=== PATIENT | female | born 1945 | race Caucasian/White ===

== ENCOUNTER 2017-08-26 11:25 | Emergency (ER) | payer MEDICARE ==
[~2017-08-26] VITALS: Ht 157.5 cm; Wt 46.0 kg
[2017-08-26 11:29] VITALS: BP 100/62; PULSE 125; RESP 15; TEMP 98.6; O2SAT 95
--- NOTE | 2017-08-26 11:34 | PD ---
Physical Exam Date Seen by Provider: Aug 26, 2017 Time Seen by Provider: 11:30 Narrative 72-year-old female with history of ulcerative colitis with total colectomy history and pouchitis with surgical treatment at [facility] 6 months ago. Patient now has chronic diarrhea and history of recurrent dehydration. She is under the care of a local card services specialist but feels she is in need of hydration. She is not requesting hospitalization but would like to be evaluated for dehydration. She has no known drug allergies. Data Data Last Documented VS Vital Signs Date Time Temp Pulse Resp B/P (MAP) Pulse Ox O2 Delivery O2 Flow Rate FiO2 08/26/17 11:29 98.6 125 15 100/62 (75) 95 MDM Medical Record Reviewed: Yes Supervised Visit with DIANNA: Yes Narrative Course Vital signs reviewed. Patient is stable. Patient is awaiting mental placement. Condition: Stable Beni Dial Aug 26, 2017 11:34
[2017-08-26] MEDS ORDERED: SODIUM CHLOR 0.9% 1000 ML INJ 1,000 ML IV ONE (11:53)
--- NOTE | 2017-08-26 12:01 | PD ---
HPI Chief Complaint: Medical Clearance Time Seen by Provider: 11:40 Travel History International Travel<30 days: No Contact w/Intl Traveler<30days: No Traveled to known affect area: No History of Present Illness HPI 72-year-old female that presents to the ED for evaluation of possible dehydration. Patient has a chronic history of ulcerative colitis having had surgery to remove the collar and and having had to have repair of the colon with a pouch. Patient states that the last surgery was in March of 2016. Ever since she's been having some issues on and off. Per patient for the past year she's been dealing with the hydration secondary to inability to absorb enough fluids. She has been seen at the [facility] multiple times for this and usually gets admitted for IV fluids. Per patient her symptoms feel similar. Per patient she has pain on her legs as well as feeling weak and tired. Per patient she is drinking a lot of water and during although thinks that the [facility] doctors had told her but she feels like she still needs IV fluids. He denies any new pains. She states that she always has abdominal cramping which has not changed. She takes prophylactic antibiotics for her pouchitis. She also was started on Imodium to try to help with the symptoms but it Appears that he has not. This was started 2 weeks ago. She follows with Dr. Obey Staton was able to see him today but he recommended that the patient comes here to get evaluated as he cannot give her fluids in the office. Patient denies any other medical issues. No chest pain or shortness of breath. She does state having some lower back pain which is normal when she gets this dehydration. She has a GI doctor but not in [facility]. All her GI care is done at the [facility] but per patient she feels like she needs to get one in the area. She states that her pain is 4 out of 10 and is more cramping. PFSH Social History Alcohol Use: No Tobacco Use: No Substance Use: No Allergies-Medications (Allergen,Severity, Reaction): Coded Allergies: infliximab (Verified Allergy, Severe, 08/26/17) Review of Systems Except as stated in HPI: all other systems reviewed are Neg Physical Exam Narrative GENERAL: SKIN: Warm and dry. HEAD: Atraumatic. Normocephalic. EYES: Pupils equal and round. No scleral icterus. No injection or drainage. ENT: No nasal bleeding or discharge. Mucous membranes pink and moist. Tongue is midline. No uvula deviation. NECK: Trachea midline. No JVD. CARDIOVASCULAR: Regular rate and rhythm. No murmurs, S3, S4. RESPIRATORY: No accessory muscle use. Clear to auscultation. Breath sounds equal bilaterally. GASTROINTESTINAL: Abdomen soft, non-tender, nondistended. Hepatic and splenic margins not palpable. MUSCULOSKELETAL: Extremities without clubbing, cyanosis, or edema. No obvious deformities. Full range of motion of the upper and lower extremities bilaterally. 2+ pulses bilaterally. NEUROLOGICAL: Awake and alert. No obvious cranial nerve deficits. Motor grossly within normal limits. Five out of 5 muscle strength in the arms and legs. Normal speech. PSYCHIATRIC: Appropriate mood and affect; insight and judgment normal. Data Data Last Documented VS Vital Signs Date Time Temp Pulse Resp B/P (MAP) Pulse Ox O2 Delivery O2 Flow Rate FiO2 08/26/17 13:33 87 18 100/56 (71) 98 Room Air 08/26/17 11:29 98.6 Orders Orders Complete Blood Count With Diff (08/26/17 11:53) Comprehensive Metabolic Panel (08/26/17 11:53) Urinalysis - C+S If Indicated (08/26/17 11:53) Lipase (08/26/17 11:53) Iv Access Insert/Monitor (08/26/17 11:53) Ecg Monitoring (08/26/17 11:53) Oximetry (08/26/17 11:53) Sodium Chlor 0.9% 1000 Ml Inj (Ns 1000 M (08/26/17 11:53) Lactic Acid (08/26/17 11:53) Creatine Kinase (Cpk) (08/26/17 11:53) Orthostatic Vital Signs (08/26/17 11:54) Electrocardiogram (08/26/17 ) Sodium Chlor 0.9% 1000 Ml Inj (Ns 1000 M (08/26/17 13:34) Labs Laboratory Tests Test 08/26/17 12:00 08/26/17 13:00 08/26/17 14:29 White Blood Count 8.5 TH/MM3 Red Blood Count 4.13 MIL/MM3 Hemoglobin 12.9 GM/DL Hematocrit 37.0 % Mean Corpuscular Volume 89.4 FL Mean Corpuscular Hemoglobin 31.2 PG Mean Corpuscular Hemoglobin Concent 34.9 % Red Cell Distribution Width 13.4 % Platelet Count 610 TH/MM3 Mean Platelet Volume 6.7 FL Neutrophils (%) (Auto) 75.6 % Lymphocytes (%) (Auto) 9.3 % Monocytes (%) (Auto) 12.6 % Eosinophils (%) (Auto) 2.1 % Basophils (%) (Auto) 0.4 % Neutrophils # (Auto) 6.4 TH/MM3 Lymphocytes # (Auto) 0.8 TH/MM3 Monocytes # (Auto) 1.1 TH/MM3 Eosinophils # (Auto) 0.2 TH/MM3 Basophils # (Auto) 0.0 TH/MM3 CBC Comment DIFF FINAL Differential Comment Blood Urea Nitrogen 16 MG/DL Creatinine 1.92 MG/DL Random Glucose 119 MG/DL Total Protein 8.5 GM/DL Albumin 3.2 GM/DL Calcium Level 9.1 MG/DL Alkaline Phosphatase 82 U/L Aspartate Amino Transf (AST/SGOT) 18 U/L Alanine Aminotransferase (ALT/SGPT) 17 U/L Total Bilirubin 0.5 MG/DL Sodium Level 129 MEQ/L Potassium Level 3.6 MEQ/L Chloride Level 93 MEQ/L Carbon Dioxide Level 26.2 MEQ/L Anion Gap 10 MEQ/L Estimat Glomerular Filtration Rate 26 ML/MIN Total Creatine Kinase 28 U/L Lipase 178 U/L Lactic Acid Level 1.7 mmol/L MDM Medical Decision Making Medical Screen Exam Complete: Yes Emergency Medical Condition: Yes Medical Record Reviewed: Yes Interpretation(s) CBC & BMP Diagram 08/26/17 12:00 Total Protein 8.5 H, Albumin 3.2 L, Calcium Level 9.1, Alkaline Phosphatase 82, Aspartate Amino Transf (AST/SGOT) 18, Alanine Aminotransferase (ALT/SGPT) 17, Total Bilirubin 0.5 CK wnl lactic acid WNL Differential Diagnosis Dehydration versus kidney failure versus acute on chronic kidney disease versus rhabdomyolysis versus malnourishment versus acute on chronic disease Narrative Course 72-year-old female that presents to the ED for evaluation with appears to be the hydration. Patient was properly examined and was found to have signs and symptoms consistent with appears to be likely dehydration and malnourishment secondary to multiple surgeries to the abdomen. Patient has a history of this in the past and feels that is the same. She followed for the [facility] usually. She tried to see her doctor today hearing Shemar to see if he could give her some IV fluids to get her improved with her having to go to the hospital but he cannot do that for her at the office of she was told to come here. On exam she is tachycardic and does appear to be somewhat dehydrated and also anorexic. Labs were ordered. I ordered 1 L of IV fluids at this time. Patient is actively trying to get the records from her [facility] visit she told me that there were concern about her kidney function but she does not know the values. Patient does tell me that her BUN and creatinine did show normal BUN to creatinine of 2.1. Labs and imaging came back here showing improvement of the BUN and creatinine. CK negative. Lactic acid within normal limits. Patient was given 2 boluses of fluid with good results. She is chronically hypotensive but her orthostatics are normal. She will prefer to go home. She does not want to stay in the hospital. At this time case was discussed in my attending Dr. Carmona who agrees with plan. They she was told that she needs to follow closely with her PCP to see whether they can do IV attrition at home. She agrees with this plan. She was told that if anything worsens she is to come back to the ED. She agrees with this plan. She was told to continue taking medications prescribed by her her GI doctor some follow with a local GI doctor. She was given information for local GI. See ED worsening symptoms. Follow with PCP. Tachycardia has improved here. Diagnosis Primary Impression: Dehydration Referrals: Mayank Vega MD Patient Instructions: General Instructions Additional Instructions: Follow-up with your PCP this week to see if he can get IV hydration at home if needed. See ED worsening symptoms. Continue taking the medications prescribed by your doctor. Med/Other Pt SpecificInfo: No Change to Meds Disposition: DISCHARGE HOME Condition: Stable Juan F Weiss Aug 26, 2017 12:01
[2017-08-26 12:27] VITALS: BP_SYST 89; BP_SYST 93; BP_DIAS 60; RESP 18
[2017-08-26 12:46] LABS: AUTOMATED NEUTROPHIL # 6.4 TH/MM3 (1.8-7.7); BASOPHIL % 0.4 % (0.0-2.0); EOSINOPHIL # 0.2 TH/MM3 (0-0.4); EOSINOPHIL % 2.1 % (0.0-4.0); HEMO FLAGS DIFF FINAL; LYMPH % 9.3 % (9.0-44.0); LYMPHOCYTE # 0.8 TH/MM3 (1.0-4.8); MEAN CELL VOLUME 89.4 FL (80.0-100.0); MEAN CORPUSCULAR HEMOGLOBIN 31.2 PG (27.0-34.0); MEAN CORPUSCULAR HGB CONC 34.9 % (32.0-36.0); MONO % 12.6 % (0.0-8.0); NEUT % 75.6 % (16.0-70.0); PLATELET COUNT 610 TH/MM3 (150-450); RED BLOOD COUNT 4.13 MIL/MM3 (4.00-5.30); RED CELL DISTRIBUTION WIDTH 13.4 % (11.6-17.2); WHITE BLOOD COUNT 8.5 TH/MM3 (4.0-11.0)
[2017-08-26 13:29] LABS: ALKALINE PHOSPHATASE 82 U/L (45-117); ALT (GPT) 17 U/L (10-53); ANION GAP 10 MEQ/L (5-15); AST (GOT) 18 U/L (15-37); BICARBONATE 26.2 MEQ/L (21.0-32.0); BLOOD UREA NITROGEN 16 MG/DL (7-18); CHLORIDE 93 MEQ/L (98-107); GLOMERULAR FILTRATION RATE 26 ML/MIN (>89); POTASSIUM 3.6 MEQ/L (3.5-5.1); SODIUM (NA) 129 MEQ/L (136-145); TOTAL BILIRUBIN ADULT 0.5 MG/DL (0.2-1.0)
[2017-08-26 13:32] LABS: CREATINE KINASE 28 U/L (26-192)
[2017-08-26 13:33] VITALS: BP 100/56; PULSE 87; PULSE 88; RESP 18; RESP 20; O2SAT 97; O2SAT 98
[2017-08-26] MEDS ORDERED: SODIUM CHLOR 0.9% 1000 ML INJ 1,000 ML IV SCH (13:34)
[2017-08-26 14:53] LABS: BLOOD, URINE SMALL (NEG); COMMENT (UR) CULT NOT INDICATED; CULTURE IF INDICATED CULT NOT INDICATED; GLUCOSE,URINE NEG (NEG); KETONE, URINE NEG (NEG); NITRITE,URINE NEG (NEG); PH, URINE 5.5 (5.0-8.5); RENAL EPITHELIAL CELLS <1 /hpf; SQUAMOUS EPITHELIAL CELL URINE <1 /hpf (0-5); URINE COLOR YELLOW (YELLW/STRAW)
[2017-08-26 15:17] VITALS: BP 110/56
--- NOTE | 2017-08-26 22:03 | EKG ---
Date Performed: 08/26/2017 Time Performed: 14:00:34 PTAGE: 72 years EKG: Sinus rhythm NO PREVIOUS TRACING DOCTOR: Didi Monterroso Interpretating Date/Time 08/26/2017 22:02:24
[2017-08-28] MEDS ORDERED: XIFA550T4 PO (16:13)
[2017-08-28] MEDS ORDERED: LOPE2CAP PO (16:15)
[2017-08-28] MEDS ORDERED: ONDA1TAB17 PO (16:16)
[2017-08-28] MEDS ORDERED: budesonide PO (16:23)
[2017-08-28] MEDS ORDERED: BUDE3CAP PO (16:31)
[2017-08-28] MEDS ORDERED: CEPH-460 PO (17:02)
== END 2017-08-26 15:18 | disposition home or self-care (01) ==
LOC: NEPE 11:25
DX: E86.0 Dehydration (principal); R00.0 Tachycardia, unspecified; M79.606 Pain in leg, unspecified; R53.1 Weakness; R53.83 Other fatigue; M54.5 Low back pain; K51.90 Ulcerative colitis, unspecified, without complications
CPT/HCPCS: 80053; 81001; 82550; 83605; 83690; 85025; 93005; 96360; 96361; 99284; J7030

== ENCOUNTER 2017-08-28 14:48 | Emergency (ER) | payer MEDICARE ==
[~2017-08-28] VITALS: Ht 158.8 cm; Wt 41.0 kg
[2017-08-28 14:52] VITALS: BP 111/64; PULSE 77; RESP 12; TEMP 98.6; O2SAT 99
[2017-08-28] MEDS ORDERED: SODIUM CHLOR 0.9% 1000 ML INJ 1,000 ML IV SCH ×6 (15:25→17:00)
[2017-08-28] MEDS ORDERED: SODIUM CHLORIDE 0.9% FLUSH 10 ML FLUSH IV FLUSH PRN ×2 (15:30)
[2017-08-28] MEDS ORDERED: ONDANSETRON HCL 4 MG/2 ML VIAL IVP ONE ×2 (15:30)
--- NOTE | 2017-08-28 15:34 | PD ---
HPI Chief Complaint: General Weakness Time Seen by Provider: 15:20 Travel History International Travel<30 days: No Contact w/Intl Traveler<30days: No Traveled to known affect area: No History of Present Illness HPI 72-year-old female presents for evaluation of dehydration, dizziness, nausea, weakness, muscle cramping in the legs. She reports a history of ulcerative colitis status post colectomy in early 2016. She reports that for the past 6 months she has had issues with recurrent bouts of dehydration. She reports that she has been hospitalized numerous times at the [facility] in [place]. The patient was seen here for similar symptoms in August 26. She was given IV fluids with improvement of her symptoms. She reports her symptoms have worsened since then which prompted her evaluation. She endorses chronic diarrhea secondary to history of colectomy. She denies abdominal pain, headache, chest pain or shortness of breath, fevers or chills. 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 Pernell Coe, and she has another appointment with him on September 01. Her primary care physician is Dr. Barnhart. She has no other complaints at this time. [facility] Past Medical History Anxiety: Yes Gastrointestinal Disorders: Yes (ulcerative colitis) Social History Alcohol Use: No Tobacco Use: No Substance Use: No Allergies-Medications (Allergen,Severity, Reaction): Coded Allergies: infliximab (Verified Allergy, Severe, 08/28/17) Reported Meds & Prescriptions Reported Meds & Active Scripts Active Keflex (Cephalexin) 500 Mg Cap 500 Mg PO Q12H [address] (Budesonide) 3 Mg Capdr 9 Mg PO DAILY Ondansetron (Ondansetron HCl) 8 Mg Tab 4 Mg PO Q6HR Loperamide (Loperamide HCl) 2 Mg Cap 2 Mg PO TID PRN One capsule after each loose stool. Not to exceed 8 capsules per day. Xifaxan (Rifaximin) 550 Mg Tab 500 Mg PO Q12HR Review of Systems Except as stated in HPI: all other systems reviewed are Neg Physical Exam Narrative GENERAL: This is a thin elderly female who is in no acute distress. Her vital signs have been reviewed. SKIN: Warm and dry. HEAD: Atraumatic. Normocephalic. EYES: Pupils equal and round. No scleral icterus. No injection or drainage. ENT: No nasal bleeding or discharge. Mucous membranes pink and moist. NECK: Trachea midline. No JVD. CARDIOVASCULAR: Regular rate and rhythm. No murmur appreciated. RESPIRATORY: No accessory muscle use. Clear to auscultation. Breath sounds equal bilaterally. GASTROINTESTINAL: Abdomen soft, non-tender, nondistended. Hepatic and splenic margins not palpable. MUSCULOSKELETAL: No obvious deformities. No clubbing. No cyanosis. No edema. NEUROLOGICAL: Awake and alert. No obvious cranial nerve deficits. Motor grossly within normal limits. Normal speech. PSYCHIATRIC: Appropriate mood and affect; insight and judgment normal. Data Data Last Documented VS Vital Signs Date Time Temp Pulse Resp B/P (MAP) Pulse Ox O2 Delivery O2 Flow Rate FiO2 08/28/17 14:52 98.6 77 12 111/64 (80) 99 Orders Orders Complete Blood Count With Diff (08/28/17 15:25) Comprehensive Metabolic Panel (08/28/17 15:25) Lipase (08/28/17 15:25) Urinalysis - C+S If Indicated (08/28/17 15:25) Iv Access Insert/Monitor (08/28/17 15:25) Ecg Monitoring (08/28/17 15:25) Oximetry (08/28/17 15:25) Ondansetron Inj (Zofran Inj) (08/28/17 15:30) Sodium Chlor 0.9% 1000 Ml Inj (Ns 1000 M (08/28/17 15:25) Sodium Chloride 0.9% Flush (Ns Flush) (08/28/17 15:30) Electrocardiogram (08/28/17 15:25) Creatine Kinase (Cpk) (08/28/17 15:25) Magnesium (Mg) (08/28/17 15:25) Urine Culture (08/28/17 15:45) Potassium Chloride (Kcl) (08/28/17 17:00) Sodium Chlor 0.9% 1000 Ml Inj (Ns 1000 M (08/28/17 17:00) Sodium Chlor 0.9% 1000 Ml Inj (Ns 1000 M (08/28/17 17:00) Cephalexin (Keflex) (08/28/17 17:00) Ed Discharge Order (08/28/17 17:02) Labs Laboratory Tests Test 08/28/17 15:45 White Blood Count 9.8 TH/MM3 Red Blood Count 4.25 MIL/MM3 Hemoglobin 13.0 GM/DL Hematocrit 37.8 % Mean Corpuscular Volume 89.0 FL Mean Corpuscular Hemoglobin 30.6 PG Mean Corpuscular Hemoglobin Concent 34.4 % Red Cell Distribution Width 13.3 % Platelet Count 691 TH/MM3 Mean Platelet Volume 6.6 FL Neutrophils (%) (Auto) 70.7 % Lymphocytes (%) (Auto) 14.1 % Monocytes (%) (Auto) 12.9 % Eosinophils (%) (Auto) 1.9 % Basophils (%) (Auto) 0.4 % Neutrophils # (Auto) 7.0 TH/MM3 Lymphocytes # (Auto) 1.4 TH/MM3 Monocytes # (Auto) 1.3 TH/MM3 Eosinophils # (Auto) 0.2 TH/MM3 Basophils # (Auto) 0.0 TH/MM3 CBC Comment AUTO DIFF Urine Color DARK-YELLOW Urine Turbidity HAZY Urine pH 5.0 Urine Specific Organ 1.023 Urine Protein 30 mg/dL Urine Glucose (UA) NEG mg/dL Urine Ketones TRACE mg/dL Urine Occult Blood SMALL Urine Nitrite NEG Urine Bilirubin NEG Urine Urobilinogen 2.0 MG/DL Urine Leukocyte Esterase TRACE Urine RBC 8 /hpf Urine WBC 25 /hpf Urine Squamous Epithelial Cells 4 /hpf Urine Bacteria RARE /hpf Urine Hyaline Casts 79 /lpf Urine Mucus FEW /lpf Microscopic Urinalysis Comment CULTURE INDICATED Blood Urea Nitrogen 20 MG/DL Creatinine 2.02 MG/DL Random Glucose 109 MG/DL Total Protein 8.8 GM/DL Albumin 3.4 GM/DL Calcium Level 9.5 MG/DL Magnesium Level 1.6 MG/DL Alkaline Phosphatase 94 U/L Aspartate Amino Transf (AST/SGOT) 14 U/L Alanine Aminotransferase (ALT/SGPT) 17 U/L Total Bilirubin 0.3 MG/DL Sodium Level 131 MEQ/L Potassium Level 3.4 MEQ/L Chloride Level 92 MEQ/L Carbon Dioxide Level 27.1 MEQ/L Anion Gap 12 MEQ/L Estimat Glomerular Filtration Rate 24 ML/MIN Total Creatine Kinase 15 U/L Lipase 204 U/L [facility] Medical Decision Making Medical Screen Exam Complete: Yes Emergency Medical Condition: Yes Medical Record Reviewed: Yes Differential Diagnosis Dehydration, electrolyte abnormality, failure to thrive, muscle cramps, acute kidney injury Narrative Course The patient was placed on ECG monitoring pulse oximetry. Twelve-lead EKG was obtained. Plan is for basic lab work, urinalysis, the patient will be given IV fluids and Zofran. The patient's lab work is been reviewed. Sodium 131, potassium 3.4. She'll be given oral potassium chloride. BUN is 20 and creatinine is 2.02, GFR is 24 which is consistent with recent GFR and record. Urinalysis is suggestive of UTI with 25 WBCs and rare bacteria and 8 RBCs. The patient feels improved after the administration of 1 L of IV fluids however she is requesting 2 additional liters and reports that she knows her body quite well and feels that this is necessary. The patient will be started on Keflex pending urine culture results. She is stable for discharge. Diagnosis Primary Impression: Hypokalemia Additional Impressions: Urinary tract infection Dehydration Additional Instructions: Medication as prescribed. Stay well hydrated. Follow-up with your primary care physician and elementary school director. Return for any emergent medical conditions. Med/Other Pt SpecificInfo: Prescription(s) given Scripts Cephalexin (Keflex) 500 Mg Cap 500 MG PO Q12H for Infection for 7 Days, #14 CAP 0 Refills Prov: Taj Morataya MD 08/28/17 Disposition: DISCHARGE HOME Condition: Stable Enrique Benedict Aug 28, 2017 15:34
[2017-08-28 16:12] LABS: BASOPHIL % 0.4 % (0.0-2.0); EOSINOPHIL # 0.2 TH/MM3 (0-0.4); EOSINOPHIL % 1.9 % (0.0-4.0); HEMATOCRIT 37.8 % (35.0-46.0); LYMPH % 14.1 % (9.0-44.0); LYMPHOCYTE # 1.4 TH/MM3 (1.0-4.8); MEAN CORPUSCULAR HEMOGLOBIN 30.6 PG (27.0-34.0); MEAN CORPUSCULAR HGB CONC 34.4 % (32.0-36.0); MEAN PLATELET VOLUME 6.6 FL (7.0-11.0); MONO % 12.9 % (0.0-8.0); MONOCYTE # 1.3 TH/MM3 (0-0.9); NEUT % 70.7 % (16.0-70.0); PLATELET COUNT 691 TH/MM3 (150-450); RED BLOOD COUNT 4.25 MIL/MM3 (4.00-5.30); RED CELL DISTRIBUTION WIDTH 13.3 % (11.6-17.2); WHITE BLOOD COUNT 9.8 TH/MM3 (4.0-11.0)
[2017-08-28] MEDS ORDERED: XIFA550T4 PO ×2 (16:13)
[2017-08-28] MEDS ORDERED: LOPE2CAP PO ×2 (16:15)
[2017-08-28] MEDS ORDERED: ONDA1TAB17 PO ×2 (16:16)
[2017-08-28 16:20] LABS: BACTERIA, URINE RARE /hpf; BILIRUBIN, URINE NEG (NEG); BLOOD, URINE SMALL (NEG); GLUCOSE,URINE NEG (NEG); HYALINE CAST, URINE 79 /lpf (RARE); KETONE, URINE TRACE mg/dL (NEG); MUCUS URINE FEW /lpf (OCC); NITRITE,URINE NEG (NEG); SQUAMOUS EPITHELIAL CELL URINE 4 /hpf (0-5); URINE COLOR DARK-YELLOW (YELLW/STRAW); URINE LEUKOCYTE ESTERASE TRACE (NEG)
[2017-08-28] MEDS ORDERED: budesonide PO ×2 (16:23)
[2017-08-28 16:31] LABS: ALBUMIN 3.4 GM/DL (3.4-5.0); ALT (GPT) 17 U/L (10-53); AST (GOT) 14 U/L (15-37); BICARBONATE 27.1 MEQ/L (21.0-32.0); BLOOD UREA NITROGEN 20 MG/DL (7-18); CALCIUM 9.5 MG/DL (8.5-10.1); CHLORIDE 92 MEQ/L (98-107); CREATININE 2.02 MG/DL (0.50-1.00); GLOMERULAR FILTRATION RATE 24 ML/MIN (>89); GLUCOSE,RANDOM 109 MG/DL (74-106); LIPASE 204 U/L (73-393); MAGNESIUM 1.6 MG/DL (1.5-2.5); SODIUM (NA) 131 MEQ/L (136-145)
[2017-08-28] MEDS ORDERED: BUDE3CAP PO ×2 (16:31)
[2017-08-28 16:33] LABS: ALKALINE PHOSPHATASE 94 U/L (45-117); TOTAL BILIRUBIN ADULT 0.3 MG/DL (0.2-1.0); TOTAL PROTEIN 8.8 GM/DL (6.4-8.2)
[2017-08-28] MEDS ORDERED: CEPHALEXIN MONOHYDRATE 500 MG CAP PO ONE ×2 (17:00)
[2017-08-28] MEDS ORDERED: POTASSIUM CHLORIDE 20 MEQ CONTROLLED RELEASE TAB PO ONE ×2 (17:00)
[2017-08-28] MEDS ORDERED: CEPH-460 PO ×2 (17:02)
[2017-08-28 17:10] LABS: BANDS 23 % (0-6); LYMPHOCYTES 13 % (9-44); MONOCYTES 14 % (0-8); NEUTROPHIL # MANUAL DIFF 7.2 TH/MM3 (1.8-7.7); POLYS (SEG NEUTROPHILS) 49 % (16-70); PROMYELOCYTES 1 % (0-0)
[2017-08-28 18:16] VITALS: BP 109/57; PULSE 88; RESP 12; O2SAT 99
--- NOTE | 2017-08-28 23:14 | EKG ---
Date Performed: 08/28/2017 Time Performed: 16:23:52 PTAGE: 72 years EKG: Sinus rhythm NORMAL ECG Compared to the PREVIOUS TRACING from 08/26/17 no significant change DOCTOR: London Jenkins Interpretating Date/Time 08/28/2017 23:13:10
[2017-09-02] MEDS ORDERED: RANI1TAB5 PO ×2 (13:27)
[2017-09-02] MEDS ORDERED: SERU1POW PO ×2 (13:27)
== END 2017-08-28 18:47 | disposition home or self-care (01) ==
LOC: NEPC 14:48
DX: E87.6 Hypokalemia (principal); N39.0 Urinary tract infection, site not specified; B95.4 Other streptococcus as the cause of diseases classified elsewhere; E86.0 Dehydration
CPT/HCPCS: 80053; 81001; 82550; 83690; 83735; 85007; 85027; 87086; 93005; 96361; 96374; 99284; J2405; J7030

== ENCOUNTER 2017-09-02 12:38 | Emergency (ER) | payer MEDICARE ==
[~2017-09-02] VITALS: Ht 157.5 cm; Wt 50.0 kg
[~2017-09-02 12:38] MED LIST: BUDE3CAP PO; CEPH-460 PO; LOPE2CAP PO; ONDA8TAB7 PO; XIFA550T4 PO
[2017-09-02 12:39] VITALS: BP 124/68; PULSE 121; RESP 18; TEMP 98.9; O2SAT 98
--- NOTE | 2017-09-02 12:45 | PD ---
Physical Exam Date Seen by Provider: Sep 02, 2017 Time Seen by Provider: 12:44 Narrative 72-year-old white female presents to emergency department requesting evaluation of possible dehydration. She states that she cannot keep fluids in her body. She feels rundown, weak dizzy and feels she needs IV fluids. She has a history of ulcerative colitis. She been seen multiple times in the ER for the same. Vital signs reviewed. Pt waiting for bed placement. Data Data Last Documented VS Vital Signs Date Time Temp Pulse Resp B/P (MAP) Pulse Ox O2 Delivery O2 Flow Rate FiO2 09/02/17 12:39 98.9 121 18 124/68 (86) 98 Room Air [facility] Medical Record Reviewed: No Supervised Visit with DIANNA: Ghanshyam Avery Sep 02, 2017 12:45
[2017-09-02] MEDS ORDERED: SODIUM CHLOR 0.9% 1000 ML INJ 1,000 ML IV SCH ×3 (12:49→14:15)
--- NOTE | 2017-09-02 13:10 | PD ---
HPI Chief Complaint: GI Complaint Time Seen by Provider: 12:49 Travel History International Travel<30 days: No Contact w/Intl Traveler<30days: No Traveled to known affect area: No History of Present Illness HPI 72-year-old female that presents to the ED for evaluation of possible dehydration. Patient has a chronic history dehydration secondary to multiple social issues. She actually has been seen here by me before in August 26. Patient has a significant history of ulcerative colitis with removal of the colon. She had reversal of this and now she has pouchitis per patient. Patient follows with the [facility] but is not currently trying to get new GI as well as PCP follow-up here in [facility]. Patient actually is on the working out to get a home health to get IV fluids at home to prevent her from coming to the emergency room which she has done in the past. She states that currently she has body aches, weakness and she feels dry. Per patient feels similar to her previous episodes. Patient comes here to get the fluids. She is taking medications. Other medical issues. She states that she tried to hydrate and her new GI doctor for her new medication to see we will help reduce her diarrhea with some success but she is starting to medication yesterday so she is waiting to see whether this will work. She denies any pain other than body aches. Per patient the discomfort is 3 out of 10. Per patient feels very similar to before. No blurry vision and double vision. No falls or injuries. PFSH Past Medical History Anxiety: Yes High Cholesterol: Yes Diminished Hearing: No Gastrointestinal Disorders: Yes (ulcerative colitis) : 2 Para: 1 : 1 Social History Alcohol Use: No Tobacco Use: No Substance Use: No Allergies-Medications (Allergen,Severity, Reaction): Coded Allergies: infliximab (Verified Allergy, Severe, 09/02/17) Reported Meds & Prescriptions Reported Meds & Active Scripts Active Keflex (Cephalexin) 500 Mg Cap 500 Mg PO Q12H 7 Days Reported Enteragam Inj (Serum-Derived Bovine Immunoglobulin Inj) 5 Gram Pow 5 Gm PO BID Ranitidine 75 (Ranitidine HCl) 75 Mg Tab 75 Mg PO BID Take 30 to 60 minutes before eating food or drinking beverages that cause heartburn. Budesonide DR (Budesonide) 3 Mg Capdr 9 Mg PO DAILY Ondansetron (Ondansetron HCl) 8 Mg Tab 4 Mg PO Q6HR Xifaxan (Rifaximin) 550 Mg Tab 500 Mg PO Q12HR Review of Systems Except as stated in HPI: all other systems reviewed are Neg Physical Exam Narrative GENERAL: SKIN: Warm and dry. HEAD: Atraumatic. Normocephalic. EYES: Pupils equal and round. No scleral icterus. No injection or drainage. ENT: No nasal bleeding or discharge. Mucous membranes pink and moist. Tongue is midline. No uvula deviation. NECK: Trachea midline. No JVD. CARDIOVASCULAR: Regular rate and rhythm. No murmurs, S3, S4. RESPIRATORY: No accessory muscle use. Clear to auscultation. Breath sounds equal bilaterally. GASTROINTESTINAL: Abdomen soft, non-tender, nondistended. Hepatic and splenic margins not palpable. MUSCULOSKELETAL: Extremities without clubbing, cyanosis, or edema. No obvious deformities. Full range of motion of the upper and lower extremities bilaterally. 2+ pulses bilaterally. NEUROLOGICAL: Awake and alert. No obvious cranial nerve deficits. Motor grossly within normal limits. Five out of 5 muscle strength in the arms and legs. Normal speech. PSYCHIATRIC: Appropriate mood and affect; insight and judgment normal. Data Data Last Documented VS Vital Signs Date Time Temp Pulse Resp B/P (MAP) Pulse Ox O2 Delivery O2 Flow Rate FiO2 09/02/17 12:39 98.9 121 18 124/68 (86) 98 Room Air Orders Orders Basic Metabolic Panel (Bmp) (09/02/17 12:49) Complete Blood Count With Diff (09/02/17 12:49) Lactic Acid (09/02/17 12:49) Urinalysis - C+S If Indicated (09/02/17 12:49) Iv Access Insert/Monitor (09/02/17 12:49) Sodium Chlor 0.9% 1000 Ml Inj (Ns 1000 M (09/02/17 12:49) Creatine Kinase (Cpk) (09/02/17 12:49) Sodium Chlor 0.9% 1000 Ml Inj (Ns 1000 M (09/02/17 12:55) Sodium Chlor 0.9% 1000 Ml Inj (Ns 1000 M (09/02/17 14:15) Ed Discharge Order (09/02/17 14:38) Labs Laboratory Tests Test 09/02/17 13:30 White Blood Count 11.9 TH/MM3 Red Blood Count 4.04 MIL/MM3 Hemoglobin 12.2 GM/DL Hematocrit 36.1 % Mean Corpuscular Volume 89.3 FL Mean Corpuscular Hemoglobin 30.2 PG Mean Corpuscular Hemoglobin Concent 33.8 % Red Cell Distribution Width 13.6 % Platelet Count 556 TH/MM3 Mean Platelet Volume 6.4 FL Neutrophils (%) (Auto) 78.4 % Lymphocytes (%) (Auto) 9.8 % Monocytes (%) (Auto) 9.1 % Eosinophils (%) (Auto) 2.3 % Basophils (%) (Auto) 0.4 % Neutrophils # (Auto) 9.3 TH/MM3 Lymphocytes # (Auto) 1.2 TH/MM3 Monocytes # (Auto) 1.1 TH/MM3 Eosinophils # (Auto) 0.3 TH/MM3 Basophils # (Auto) 0.0 TH/MM3 CBC Comment DIFF FINAL Differential Comment Blood Urea Nitrogen 25 MG/DL Creatinine 1.92 MG/DL Random Glucose 118 MG/DL Calcium Level 8.9 MG/DL Sodium Level 128 MEQ/L Potassium Level 4.2 MEQ/L Chloride Level 95 MEQ/L Carbon Dioxide Level 22.8 MEQ/L Anion Gap 10 MEQ/L Estimat Glomerular Filtration Rate 26 ML/MIN Lactic Acid Level 1.2 mmol/L Total Creatine Kinase 18 U/L MDM Medical Decision Making Medical Screen Exam Complete: Yes Emergency Medical Condition: Yes Medical Record Reviewed: Yes Interpretation(s) CBC & BMP Diagram 09/02/17 13:30 Calcium Level 8.9 Differential Diagnosis Dehydration versus electrolyte abnormality versus diarrhea versus acute on chronic disease versus normal exam Narrative Course 72-year-old female that presents to the ED for evaluation of possible dehydration. Patient was properly examined and was found to have signs and symptoms which appear to be consistent with likely dehydration. I have evaluated this patient before and she's been seen here twice this month alone for evaluation of similar. She does appear to be somewhat dehydrated at this time. She did have slight abnormality of her potassium as well as her kidney function from her first evaluation here. At this time we'll give her fluids. Labs were ordered. This showed slightly worsening BUN from 20-25 otherwise mildly low sodium and potassium normal. Case was discussed in my attending Dr. Morataya is a patient can be discharged. Patient was told to follow with PCP and to get the outpatient IV fluids. Patient feels improved. Patient states that she already has her PCP doing this. Told to follow with PCP. See ED worsening symptoms. Diagnosis Primary Impression: Dehydration Patient Instructions: General Instructions Additional Instructions: Follow with your primary care doctor. See ED if worsening symptoms. Continue taking your medications prescribed by your doctor. Med/Other Pt SpecificInfo: No Change to Meds Disposition: 01 DISCHARGE HOME Condition: Stable Juan F Weiss Sep 02, 2017 13:10
[2017-09-02] MEDS ORDERED: SERU1POW PO (13:27)
[2017-09-02] MEDS ORDERED: RANI1TAB5 PO (13:27)
[2017-09-02 13:57] LABS: AUTOMATED NEUTROPHIL # 9.3 TH/MM3 (1.8-7.7); BASOPHIL % 0.4 % (0.0-2.0); EOSINOPHIL # 0.3 TH/MM3 (0-0.4); EOSINOPHIL % 2.3 % (0.0-4.0); HEMATOCRIT 36.1 % (35.0-46.0); HEMO FLAGS DIFF FINAL; LYMPH % 9.8 % (9.0-44.0); LYMPHOCYTE # 1.2 TH/MM3 (1.0-4.8); MEAN CELL VOLUME 89.3 FL (80.0-100.0); MEAN CORPUSCULAR HEMOGLOBIN 30.2 PG (27.0-34.0); MEAN CORPUSCULAR HGB CONC 33.8 % (32.0-36.0); MONO % 9.1 % (0.0-8.0); NEUT % 78.4 % (16.0-70.0); PLATELET COUNT 556 TH/MM3 (150-450); RED BLOOD COUNT 4.04 MIL/MM3 (4.00-5.30); RED CELL DISTRIBUTION WIDTH 13.6 % (11.6-17.2); WHITE BLOOD COUNT 11.9 TH/MM3 (4.0-11.0)
[2017-09-02 14:10] LABS: BICARBONATE 22.8 MEQ/L (21.0-32.0); POTASSIUM 4.2 MEQ/L (3.5-5.1)
[2017-09-02 15:56] VITALS: BP 109/55; PULSE 92; RESP 16; O2SAT 100
[2017-09-02 16:03] LABS: BACTERIA, URINE RARE /hpf; BLOOD, URINE SMALL (NEG); COMMENT (UR) CULT NOT INDICATED; CULTURE IF INDICATED CULT NOT INDICATED; GLUCOSE,URINE NEG (NEG); HYALINE CAST, URINE 11 /lpf (RARE); KETONE, URINE NEG (NEG); NITRITE,URINE NEG (NEG); PH, URINE 5.5 (5.0-8.5); TRANSITIONAL EPI CELLS, URINE 1 /hpf; URINE COLOR YELLOW (YELLW/STRAW)
== END 2017-09-02 16:45 | disposition home or self-care (01) ==
LOC: NEPE 12:38
DX: E86.0 Dehydration (principal); K51.90 Ulcerative colitis, unspecified, without complications
CPT/HCPCS: 80048; 81001; 82550; 83605; 85025; 96360; 96361; 99284; J7030

== ENCOUNTER 2017-09-03 13:09 | Day surgery (SDC) | payer MEDICARE ==
[~2017-09-03 13:09] MED LIST changes: -LOPE2CAP PO; +RANI1TAB5 PO; +SERU1POW PO
[2017-09-03 13:27] VITALS: BP 104/60; PULSE 89; RESP 18; TEMP 98.7; O2SAT 98
--- NOTE | 2017-09-03 15:57 | RADRPT ---
EXAM DATE/TIME: 09/03/2017 14:42 [facility] COMPARISON: No previous studies available for comparison. INDICATIONS : Patient with history of ulcerative colitis in need of PICC line placement. MEDICAL HISTORY : Dehydration, Ulcerative colitis, HLD SURGICAL HISTORY : Colectomy ENCOUNTER: Initial ACUITY: 1 week PAIN SCORE: 0/10 FLUORO TIME: 0.3 minutes IMAGE SERIES: 1 ACCESS: Left basilic vein MEDICATION(S): 1.) 200 units Heparin IV DEVICE(S): 1.) 4 [place] single lumen 39 cm Xcela Power PICC PROCEDURE : 1. Ultrasound guidance for venous catheterization. 2. Fluoroscopic guidance. 3. Ultrasound & fluoroscopic guided central venous Power PICC line placement. The risks, benefits and alternatives to the procedure were explained and verbal and written consent w as obtained. The site was prepped in sterile fashion. Full sterile technique was used, including ca p, mask, sterile gloves and gown and a large sterile sheet. Hand hygiene and 2% chlorhexidine prep w as utilized per protocol for cutaneous antisepsis with appropriate dry time for site. Sterile gel a nd sterile probe cover were utilized for ultrasound guidance. The skin and subcutaneous tissues wer e infiltrated with local anesthetic solution. Under direct ultrasound guidance, a suitable vein was accessed and a measuring guidewire was introduc ed and positioned in the central venous system. The ultrasound images depicting access guidance were saved and stored to PACS for permanent record. A Power Injectable PICC line was cut to prescribed length and introduced, positioned with tip at the cavoatrial junction level. The line was flushed and secured per protocol. CONCLUSION: 1. Uncomplicated central venous Power PICC line placement. 2. The PICC line can be used immediately. Gino Spann MD on September 03, 2017 at 15:55 Board Certified Radiologist. This report was verified electronically.
== END 2017-09-03 16:00 | disposition home or self-care (01) ==
LOC: HROP 13:09 → HRIP 13:12 → HROP 16:00
PROVIDERS: ATTEND Internal Medicine Gastroenterology
DX: K51.90 Ulcerative colitis, unspecified, without complications (principal); E78.5 Hyperlipidemia, unspecified; E86.0 Dehydration
CPT/HCPCS: 36569; 76937; 77001; C1751; J1642

== ENCOUNTER 2017-11-18 12:49 | Day surgery (SDC) | payer MEDICARE ==
[~2017-11-18 12:49] MED LIST changes: -CEPH-460 PO; -ONDA8TAB7 PO; -RANI1TAB5 PO; -XIFA550T4 PO; +ZANT150T2 PO
[2017-11-18 13:00] VITALS: BP 121/67; PULSE 85; RESP 20; TEMP 98.3; O2SAT 100
== END 2017-11-18 13:16 | disposition home or self-care (01) ==
LOC: HROP 12:49 → HRIP 12:53 → HROP 13:16
PROVIDERS: ATTEND Internal Medicine Gastroenterology
DX: Z45.2 Encounter for adjustment and management of vascular access device (principal)

== ENCOUNTER 2017-11-26 13:57 | Day surgery (SDC) | payer MEDICARE ==
[2017-11-26 14:16] VITALS: BP 100/66; PULSE 134; RESP 20; TEMP 97.7; O2SAT 100
[2017-11-26] MEDS ORDERED: ZOFR4TAB PO (14:21)
--- NOTE | 2017-11-26 15:58 | PD.RAD ---
Post Procedure Progress Note Pre Procedure Diagnosis: (1) Dehydration Post Procedure Diagnosis: (1) Dehydration Procedure Date: Nov 26, 2017 Supervising Radiologist: Ozzy Denton Proceduralist/Assist: Hailee Eraoz RT(R)(), RT Gilbert(R) Anesthesia: Local Plan of Activity Patient to Unit: ROPU Patient Condition: Good See PACS Report for procedural detail/treatment PICC Device Left PICC line placement single lumen [place]: 4 PICC Line Length (cm): 39 Catheter: Power PICC PICC line can be used immediately Central Venous Access Device Procedure 1 Left Ozzy Denton MD Nov 26, 2017 15:58
[2017-11-26] MEDS ORDERED: SODIUM CHLORIDE 0.9% FLUSH 10 ML FLUSH IVF PRN ×2 (16:00)
--- NOTE | 2017-11-26 16:52 | RADRPT ---
EXAM DATE/TIME: 11/26/2017 15:29 [facility] COMPARISON: PICC LINE INSERTION,POWER W/FL&US, September 03, 2017, 14:42. INDICATIONS : Patient presents with colitis and dehydration in need of peripheral intravenous line placement for fl iud administration. MEDICAL HISTORY : Ulcerative colitis GERD Anxiety Arthritis Hypercholesterolemia SURGICAL HISTORY : Colon removed 2 hip replacements ENCOUNTER: Subsequent ACUITY: 2 days PAIN SCORE: 0/10 LOCATION: N/A FLUORO TIME: 1.0 minutes IMAGE SERIES: 1 ACCESS: Left basilic vein MEDICATION(S): 1.) 200 units Heparin IV 1.) 4 Hebrew single lumen 39 cm Xcela Power PICC PROCEDURE : 1. Ultrasound guidance for venous catheterization. 2. Fluoroscopic guidance. 3. Ultrasound & fluoroscopic guided central venous Power PICC line placement. The risks, benefits and alternatives to the procedure were explained and verbal and written consent w as obtained. The site was prepped in sterile fashion. Full sterile technique was used, including ca p, mask, sterile gloves and gown and a large sterile sheet. Hand hygiene and 2% chlorhexidine prep w as utilized per protocol for cutaneous antisepsis with appropriate dry time for site. Sterile gel a nd sterile probe cover were utilized for ultrasound guidance. The skin and subcutaneous tissues wer e infiltrated with local anesthetic solution. Under direct ultrasound guidance, a suitable vein was accessed and a measuring guidewire was introduc ed and positioned in the central venous system. The ultrasound images depicting access guidance were saved and stored to PACS for permanent record. A Power Injectable PICC line was cut to prescribed length and introduced, positioned with tip at the cavoatrial junction level. The line was flushed and secured per protocol. CONCLUSION: 1. Uncomplicated central venous Power PICC line placement. 2. The PICC line can be used immediately. Ozzy Denton MD on November 26, 2017 at 16:49 Board Certified Radiologist. This report was verified electronically.
[2017-11-27] MEDS ORDERED: SODIUM CHLORIDE 0.9% FLUSH 10 ML FLUSH IVF SCH (09:00)
== END 2017-11-26 16:05 | disposition home or self-care (01) ==
LOC: HROP 13:57 → HRIP 14:02 → HROP 16:05
PROVIDERS: ATTEND Internal Medicine Gastroenterology
DX: Z45.2 Encounter for adjustment and management of vascular access device (principal); K52.9 Noninfective gastroenteritis and colitis, unspecified; K21.9 Gastro-esophageal reflux disease without esophagitis; E86.0 Dehydration; E78.00 Pure hypercholesterolemia, unspecified; F41.9 Anxiety disorder, unspecified
CPT/HCPCS: 36561; 76937; 77001; C1751; J1642